=== PATIENT | male | born 1970 | race Hispanic/Latino ===

== ENCOUNTER 2020-06-06 20:44 | Emergency (ER) | payer OTHER, SELFPAY ==
--- NOTE | ~2020-06-06 | CT_ITS ---
EXAMINATION: CT BRAIN W/O DATE: 06/06/2020 21:30 INDICATION: Right facial droop TECHNIQUE: Computed tomography (CT) of the head was performed without intravenous contrast. The dose- length product was 605.33 mGy-cm. The mA was adjusted according to patient size. Iterative reconstruc tion technique was employed. COMPARISON: No prior studies for comparison. FINDINGS: Normal brain parenchymal volume for age. Normal [place]-white differentiation. No acute intrac ranial hemorrhage, infarction, mass or mass effect. No ventriculomegaly or midline shift. Midline sagittal images demonstrate a normal corpus callosum, c raniovertebral junction and sella turcica. Basilar cisterns are patent. Paranasal sinuses and mastoids are pneumatized. No depressed skull fractures. IMPRESSION: 1. No acute intracranial abnormality. Reviewed, dictated and finalized at location A.
[2020-06-06 20:48] VITALS: BP 178/95; PULSE 81; RESP 17; TEMP 36.6; O2SAT 100
--- NOTE | 2020-06-06 21:05 | ED.NEUROSD ---
HPI - Neuro Symptoms/Deficit General Chief Complaint: Neuro Symptoms/Deficit Stated Complaint: vision blurry, facial stiffness/numbness Time Seen by Provider: 06/06/20 20:49 Source: patient Mode of arrival: ambulatory Limitations: no limitations History of Present Illness HPI Narrative: This is a 49 year old male who presents for evaluation of right facial numbness and weakness. He noticed that he was having trouble controlling the right side of his lower face yesterday. He also reports postauricular left ear pain yesterday. He has burning , watery eyes and he also reports intermittent blurred vision. He denies left arm or left leg weakness. He denies history of CVA. Related Data Allergies Allergy/AdvReac Type Severity Reaction Status Date / Time No Known Allergies Allergy Unverified 10/07/17 11:43 Review of Systems Review of Systems: All systems reviewed & are unremarkable except as noted in HPI and below PMFSH Past Medical History Medical History (Updated 06/07/20 @ 00:00 by Genevieve Daeli) Patient denies medical problems Surgical History Surgical History (Updated 06/06/20 @ 21:13 by Rosalinda Marie MD) No pertinent past surgical history Social History Social History (Updated 06/06/20 @ 21:13 by Rosalinda Marie MD) Smoking status: Never smoker Exam Const: General: no acute distress and alert Orientation/consciousness: patient oriented x3 HENMT: Head: normocephalic and atraumatic Ears: TM's normal bilaterally General nose exam: No nasal polyps present Face and sinus: other (right upper and lower facial weakness) Throat: tonsils normal and uvula midline Eyes: Pupils: Equal, round and reactive pupils present EOM: EOMs intact bilaterally Resp: Effort & Inspection: normal respiratory effort and no retractions Auscultation: clear to auscultation bilaterally Cardio: Rate: regular rate Rhythm: regular rhythm Heart sounds: no murmurs GI: GI Palp: Yes Soft to palpation, No Tenderness to palpation present (GI) and No Guarding due to palpation present (GI) Auscultation: normal bowel sounds Skin: General skin exam: normal color Rashes: no rashes Neuro: General: patient oriented x3, moves all extremities and no meningeal signs Cranial nerves: Yes Nystagmus not present and Yes Midline tongue present Speech: normal speech Gait exam (Neuro): Normal gait present Sensory Exam: normal sensation Coordination: [id number] test normal Other: right upper and lower facial weakness Psych: Mental Status: mental status grossly normal Affect: normal affect Course Reevaluation(s) Reevaluation #1: I have discussed with patient that 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 I Discussed discharge plan and management. Date: 06/06/20 Time: 22:01 Vital Signs Vital signs: Vital Signs Temperature 97.9 F 06/06/20 20:48 Pulse Rate 81 06/06/20 20:48 Respiratory Rate 17 06/06/20 20:48 Blood Pressure 178/95 H 06/06/20 20:48 Pulse Oximetry 100 06/06/20 20:48 Temperature 97.9 F 06/06/20 20:48 Pulse Rate 74 06/06/20 22:34 Respiratory Rate 16 06/06/20 22:34 Blood Pressure 128/96 H 06/06/20 22:34 Pulse Oximetry 95 06/06/20 22:34 MDM - Neuro Symptoms/Deficit Imaging Data Radiologist's impression: ITS Impressions Head CT 06/06/20 21:32 IMPRESSION: 1. No acute intracranial abnormality. Discharge Plan Discharge Clinical Impression: Anglin's palsy Patient Disposition: Home, Self-Care Condition: Stable Instructions: Antibiotic Form, Anglin Palsy (ED) Additional Instructions: Today you were evaluated and diagnosed with Anglin's Palsy. This should improve over time. It may take months for it resolve. Follow up with your primary care physician. Prescriptions: New prednisone 10 mg Tablets,Dose Pack See Taper mg PO DAILY 12 Days Qty: 42 RF: 0 valacyclovir [Valtrex] 1 gram tablet 1,000 mg PO Q8H Qty: 21 RF: 0 Follow-up/Referrals:
--- NOTE | 2020-06-06 21:19 | ECG_ITS ---
Measurements Intervals [place] Rate: 73 P: 54 AK: 177 QRS: 24 QRSD: 106 T: 38 QT: 369 QTc: 408 Interpretive Statements SINUS RHYTHM BASELINE ARTIFACT- I, II, III, AVR, AVF, V2-V6 NORMAL ECG Electronically Signed On 06-07-2020 7:12:02 CDT by Paul Villanueva D.O.
[2020-06-06 21:35] VITALS: BP 149/96; PULSE 72; RESP 12; O2SAT 99
[2020-06-06 22:34] VITALS: BP 128/96; PULSE 74; RESP 16; O2SAT 95
== END 2020-06-06 22:35 | disposition home or self-care (01) ==
PROVIDERS: Emergency Provider General Practice
DX: G51.0 Bell's palsy (principal)
CPT/HCPCS: 70450; 93005; 99284